=== PATIENT | male | born 1970 | race Caucasian/White ===

== ENCOUNTER → 2025-08-21 | Outpatient (CLI) | payer BC ==
[~2025-08-21] MED LIST: Acetaminophen650 M1 PO; CHLO25B PO; HYDMOR2 PO; METO100ER; NAPR220 PO; OXYACE5T PO; OZEMPIC1 MG/0.72 SC; OZEMPIC1 MG/0.72 SQ; ZESTRIL40 M1 PO
== END ==
LOC: LAB SHORT 13:37 → LAB 13:37
DX: R31.9 Hematuria, unspecified (principal)
CPT/HCPCS: 87077; 87086; 87186

== ENCOUNTER 2025-09-03 13:39 | Day surgery (SDC) | payer BC ==
[~2025-09-03] VITALS: Ht 185.4 cm; Wt 182.7 kg
[2025-09-03] VITALS (8 sets, daily range): BP systolic 99–119; BP diastolic 60–72
[2025-09-03] MEDS ORDERED: Midazolam HCl 1MG / ML 2ML Vial ONE (13:54)
[2025-09-03] MEDS ORDERED: FentaNYL Citrate 50 MCG/ML 2 ML Injection ONE (13:54)
[2025-09-03] MEDS ORDERED: Rocuronium Bromide 10 MG/ML 5ML Injection IV ONE (13:56)
[2025-09-03] MEDS ORDERED: Bupivacaine 0.5% HCl 5 MG/ML 30MLVIAL ONE (14:36)
[2025-09-03] MEDS ORDERED: CeFAZolin Sodium 3,000 MG in NS 100 ML IV SCH (14:40)
--- NOTE | 2025-09-03 14:52 | NUR ---
Ambulatory in Day Surgery History, Chart, Medications and Allergies reviewed before start of procedure.Pre-Op teaching done. Pt verbalizes understanding. Patient States Post-Procedure ride home has been arranged.
[2025-09-03] MEDS ORDERED: FentaNYL Citrate 50 MCG/ML 2 ML Injection IV PRN ×2 (15:35)
[2025-09-03] MEDS ORDERED: Ondansetron HCl 2 MG / ML 2ML Vial IV PRN (15:35)
[2025-09-03] MEDS ORDERED: HYDROmorphone HCl/Pf 1MG SYR IV PRN ×2 (15:35→15:40)
[2025-09-03] MEDS ORDERED: ePHEDrine Sulfate 50 MG/ML 1ML Injection ONE (15:46)
[2025-09-03] MEDS ORDERED: Vancomycin HCl 1000 MG ADDvantage ONE (15:57)
[2025-09-03] MEDS ORDERED: Ondansetron HCl 2 MG / ML 2ML Vial ONE (16:14)
[2025-09-03] MEDS ORDERED: Sugammadex Sodium 200 MG/2ML SDV (100 MG/ML) ONE (16:18)
[2025-09-03] MEDS ORDERED: HYDROcodone 5-APAP 325 TAB PO PRN (17:10)
--- NOTE | 2025-09-03 17:37 | NUR ---
DISCHARGE NOTE PT A&OX4, BREATHING RA, VSS, PO PAIN MEDICATION GIVEN. NO NAUSEA. PT TOLERATING PO INTAKE. PT EAGER TO DISCHARGE. Patient up to Ambulate independently. Gait steady. Discharge instructions reviewed with patient. Patient verbalizes understanding. Copy given to patient to take home. Dressing to procedure site clean, dry, intact with no visible drainage, swelling, erythema or bruising noted. TUAN DRAIN INTACT AND DRAINING SS FLUIDS. Discharged via wheelchair to private car for ride home.
== END 2025-09-03 17:40 | disposition home or self-care (01) ==
LOC: ORSCMMR 13:39 → ORD 16:00 → ORSCSDS 16:00 → ORSCMMR 17:40
PROVIDERS: Urology
PROC: 0VB60ZZ Excision of Right Tunica Vaginalis, Open Approach (ICD-10-PCS; principal; 2025-09-03 15:15)
PROC: 0V9 Male Reproductive System, Drainage (ICD-10-PCS; principal; 2025-09-03 15:15)
DX: N43.3 Hydrocele, unspecified (principal); N50.1 Vascular disorders of male genital organs; N50.89 Other specified disorders of the male genital organs; I10 Essential (primary) hypertension; E66.9 Obesity, unspecified; Z68.43 Body mass index [BMI] 50.0-59.9, adult; Z79.899 Other long term (current) drug therapy
CPT/HCPCS: 87070; 87075; 87205; A9270; J0690; J2250; J2405; J2704; J3010; J3373; J7120